=== PATIENT | female | born 1940 | race Caucasian/White ===

== ENCOUNTER → 2016-07-31 | Outpatient (CLI) | payer MEDICARE, OTHER ==
[~2016-07-31] MED LIST: AMIO200T PO; DIAZ10TA PO; DIGO250T73 PO; FERR324T4 PO; FOLI1TAB15 PO; FURO20 PO; METF1000 PO; METO-323 PO; MULT-96 PO; OMEG10005 PO; PANT40SU PO; RAMI5CAP21 PO; ROSU10 PO; TRAM-355 PO; WARF3TAB6 PO
[2016-07-31 12:30] LABS: INR 1.4 (0.9-1.1); PROTHROMBIN TIME 15.3 SEC (9.4-11.6)
[2016-07-31 12:35] LABS: ALANINE AMINOTRANSFERASE 27 U/L (12-78); ALBUMIN 4.2 g/dL (3.4-5.0); ANION GAP 10 mmol/L (8-16); ASPARTATE AMINOTRANSFERASE 24 U/L (15-37); BILIRUBIN,TOTAL 0.4 mg/dL (0.1-1.0); CALCIUM, TOTAL 9.3 mg/dL (8.8-10.5); CARBON DIOXIDE 28 mmol/L (22-29); CHLORIDE 103 mmol/L (98-107); CREATININE 0.81 mg/dL (0.60-1.30); GLOMERULAR FILTR. RATE CALC > 60 mL/min (>60); POTASSIUM 3.9 mmol/L (3.5-5.1); SODIUM SERUM 141 mmol/L (136-145); TOTAL PROTEIN, SERUM 8.3 g/dL (6.4-8.2); UREA NITROGEN, BLOOD 17 mg/dL (7-18)
== END | disposition home or self-care (01) ==
LOC: LABPV 10:28
PROVIDERS: ATTEND Internal Medicine Cardiovascular Disease
DX: I11.0 Hypertensive heart disease with heart failure (principal); I50.9 Heart failure, unspecified; E11.8 Type 2 diabetes mellitus with unspecified complications

== ENCOUNTER → 2016-10-30 | Outpatient (CLI) | payer MEDICARE, OTHER | END | disposition home or self-care (01) | LOC: RADMN 07:54 | PROVIDERS: ATTEND Internal Medicine Cardiovascular Disease | DX: Z00.00 Encounter for general adult medical examination without abnormal findings (principal) | CPT/HCPCS: 78472; Q3010 ==

== ENCOUNTER 2018-11-20 13:13 | Emergency (ER) | payer OTHER ==
[~2018-11-20] VITALS: Ht 160 cm; Wt 72.7 kg
[~2018-11-20 13:13] MED LIST changes: -METO-323 PO; +METO-408 PO; -RAMI5CAP21 PO; +RAMI5CAP66 PO; -ROSU10 PO; +ROSU10TA22 PO; +WARF3TAB59 PO; -WARF3TAB6 PO
[2018-11-20 13:24] LABS: GLUCOSE,POINT OF CARE 106 MG/DL (70-110)
[2018-11-20] MEDS ORDERED: BIMA12.5OS OU (13:26)
[2018-11-20] MEDS ORDERED: WARF3TAB29 PO (13:26)
[2018-11-20] MEDS ORDERED: FLUT16H NASAL (13:26)
[2018-11-20 14:59] LABS: BASOPHILS % (AUTO) 0.7 % (0.0-2.0); EOSINOPHILS % (AUTO) 2.3 % (1.0-6.0); HEMATOCRIT 37.9 % (36-46); HEMOGLOBIN 12.7 g/dL (12.0-16.0); LYMPHOCYTES # (AUTO) 1.4 K/uL (1.0-4.8); LYMPHOCYTES % (AUTO) 25.9 % (22.0-44.0); MEAN CORPUSCULAR HEMOGLOBIN 31.5 pg (26.0-34.0); MEAN CORPUSCULAR HGB CONC 33.4 G/dL (31.0-37.0); MEAN CORPUSCULAR VOLUME 94 fL (80-100); MONOCYTES # (AUTO) 0.3 K/uL (0.1-1.0); MONOCYTES % (AUTO) 6.3 % (2.0-9.0); NEUTROPHILS # (AUTO) 3.4 K/uL (1.8-7.7); NEUTROPHILS % (AUTO) 64.8 % (40.0-70.0); PLATELET COUNT (AUTO) 181 K/uL (150-450); RED BLOOD CELL COUNT(AUTO) 4.03 MIL/uL (4.00-5.20); RED CELL DISTRIBUTION WIDTH 13.2 % (11.5-14.5)
[2018-11-20] MEDS ORDERED: MECL-111 PO (15:09)
[2018-11-20] MEDS ORDERED: TRAM1TAB PO (15:09)
[2018-11-20 15:16] LABS: PROTHROMBIN TIME 20.4 SEC (9.4-11.6)
[2018-11-20 15:21] LABS: ANION GAP 10 mmol/L (8-16); CALCIUM, TOTAL 9.9 mg/dL (8.8-10.5); CARBON DIOXIDE 29 mmol/L (22-29); CHLORIDE 104 mmol/L (98-107); CREATININE 0.92 mg/dL (0.60-1.30); GLOMERULAR FILTR. RATE CALC 59 mL/min (>60); GLUCOSE,RANDOM 111 mg/dL (70-110); POTASSIUM 4.7 mmol/L (3.5-5.1); SODIUM SERUM 143 mmol/L (136-145); UREA NITROGEN, BLOOD 13 mg/dL (7-18)
[2018-11-20 15:28] LABS: ALANINE AMINOTRANSFERASE 22 U/L (12-78); ALKALINE PHOSPHATASE 52 U/L (46-116); ASPARTATE AMINOTRANSFERASE 20 U/L (15-37); BILIRUBIN,TOTAL 0.3 mg/dL (0.1-1.0); CREATINE KINASE, TOTAL ONLY 46 U/L (26-192); TOTAL PROTEIN, SERUM 7.8 g/dL (6.4-8.2)
[2018-11-20 15:40] LABS: B-TYPE NATRIURETIC PEPTIDE 180 pg/mL (0-100)
[2018-11-20 15:41] LABS: DIGOXIN < 0.20 ng/mL (0.90-2.00)
[2018-11-20] MEDS ORDERED: SODIUM CHLORIDE 0.9% 100 ML ONE (16:36)
[2018-11-20] MEDS ORDERED: IOVERSOL 320 MG/ML 100 ML VIAL ONE (16:36)
[2018-11-20 17:16] LABS: APPEARANCE,URINE CLEAR (CLEAR); BILIRUBIN,URINE NEGATIVE (NEGATIVE); GLUCOSE, URINE (UA) NEGATIVE (NEGATIVE); KETONES,URINE NEGATIVE (NEGATIVE); LEUKOCYTE ESTERASE ,URINE TRACE (NEGATIVE); NITRATE,URINE NEGATIVE (NEGATIVE); OCCULT BLOOD,URINE SMALL (NEGATIVE); PH,URINE 7.5 (5.0-8.0); PROTEIN,URINE NEGATIVE (NEGATIVE); UROBILINOGEN,URINE 0.2 mg/dL (<=1.0)
[2018-11-20 17:28] LABS: RBC,URINE 0-2 /HPF (0-2)
[2018-11-20 17:29] LABS: BACTERIA,URINE None Seen /HPF (None Seen); SQUAMOUS EPITHELIAL CELL,UR Rare /LPF (None Seen)
[2018-11-20 17:30] LABS: RENAL EPITHELIAL CELLS,URINE Rare /LPF (None Seen)
[2018-11-20] MEDS ORDERED: ESMOLOL HCL 2500 MG/NACL 250 ML IV PRN (18:15)
[2018-11-20] MEDS ORDERED: LORazepam 2 MG/ML VIAL IVP ONE (19:15)
[2018-11-20] MEDS ORDERED: NICARDipine 20 MG/DEXT,ISO-OSM 200 ML IV PRN (19:21)
[2018-11-20 21:30] VITALS: BP 114/68
[2018-11-20 22:00] LABS: GLUCOSE,POINT OF CARE 101 MG/DL (70-110)
== END 2018-11-20 22:07 | disposition short-term general hospital (02) ==
LOC: EMS 13:14
DX: R07.89 Other chest pain (principal); R06.02 Shortness of breath; E11.9 Type 2 diabetes mellitus without complications; I10 Essential (primary) hypertension; E78.00 Pure hypercholesterolemia, unspecified; Z95.2 Presence of prosthetic heart valve; Z79.01 Long term (current) use of anticoagulants; Z86.79 Personal history of other diseases of the circulatory system; Z79.84 Long term (current) use of oral hypoglycemic drugs; Z79.899 Other long term (current) drug therapy
CPT/HCPCS: 36415; 71046; 71260; 80053; 80162; 81001; 82550; 82962; 83880; 84484; 85025; 85610; 85730; 93005; 96365; 96366; 96375; 99291; 99292; J2060; J7050; Q9967